=== PATIENT | female | born 1990 | race Caucasian/White ===

== ENCOUNTER 2017-04-17 09:47 | Emergency (ER) | payer OTHER ==
--- NOTE | ~2017-04-17 | CR141 ---
[facility]. [facility] A Service of [facility] & [facility] RADIOLOGY TEXT RESULTS PATIENT: BETY BOURGEOIS LOCATION: SED : [birth year] UNIT #: [id number] AGE: [address]: Mauro Nichole MD SEX: F ORDER DR: [id number] [place] [id number] E MR#: [id number] Acc #: [id number] NAME: BETY BOURGEOIS : 1990 SEX: F STUDY DATE/TIME: UNIT: SED ROOM: STUDY DESCRIPTION: CR Hand Min 3 Views Lt Attending Physician: Mauro Nihcole M.D. Ordering Physician: Mauro Nichole M.D. Primary Care Physician: Primary Care Physician No MEDICAL IMAGING REPORT This report is preliminary unless electronic signature is present. EXAM Left hand 3 views, 04/17/2017 11:21 hours COMPARISON Left wrist, 10/26/2009 HISTORY 27-year-old who suffered dog bite this morning with hand pain. FINDINGS AP, lateral and oblique views demonstrate normal bone density. There is no fracture, dislocation or radiopaque foreign body. No soft tissue gas. IMPRESSION No fracture, dislocation, foreign body or soft tissue gas is seen. Dictated by... Cheri Cowan M.D. THIS IS AN ELECTRONICALLY VERIFIED REPORT Cheri Cowan M.D. at 04/18/2017 9:25 AM May TD: 04/17/2017 15:17 JOB #: [id number] MEDICAL IMAGING REPORT Page 1 of 1
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
[~2017-04-17 09:47] MED LIST: AMOXICILLIN500 M1 PO; AMOXIL500 M1 PO; AUGMENTIN PO; BACTRIM DS TABL1 TAB PO; DELSYM30 MG/5 ML; DICLOFENAC PO; E-MYCIN250 MG PO; FLEXERIL PO; FLEXERIL10 M1 PO; IBUPROFEN PO; KETOPROFEN PO; MEDROL4 MG/DOSE- PO; NO MEDICATIONS; PROVENTIL17 GM INH; TAMIFLU75 M1 PO; TESSALON200 MG PO; VICODIN 5/500 T1 TAB PO; VOLTAREN75 MG PO
== END 2017-04-17 12:18 | disposition home or self-care (01) ==
LOC: SED 09:47
DX: S01.511A Laceration without foreign body of lip, initial encounter (principal); S60.222A Contusion of left hand, initial encounter; Y09 Assault by unspecified means; B19.20 Unspecified viral hepatitis C without hepatic coma; F17.200 Nicotine dependence, unspecified, uncomplicated; Z88.5 Allergy status to narcotic agent; Z91.040 Latex allergy status; Z23 Encounter for immunization; W54.0XXA Bitten by dog, initial encounter; Y92.009 Unspecified place in unspecified non-institutional (private) residence as the place of occurrence of the external cause
CPT/HCPCS: 70450; 73130; 90471; 90715; 99284

== ENCOUNTER 2017-04-25 03:33 | Emergency (ER) | payer OTHER ==
--- NOTE | ~2017-04-25 | CR142 ---
[facility] A Service of [facility] & [facility] RADIOLOGY TEXT RESULTS PATIENT: BETY BOURGEOIS LOCATION: [facility] : [birth year] UNIT #: [id number] AGE: [address]: ARUN RUDOLPH APRN SEX: F ORDER DR: [id number] [facility] [address] [place], [place] [address] [id number] E MR#: [id number] Acc #: [id number] NAME: BETY BOURGEOIS : 1990 SEX: F STUDY DATE/TIME: 04/25/2017 4:12 UNIT: [facility] ROOM: STUDY DESCRIPTION: CR Hand Min 3 Views Rt Attending Physician: Arun Rudolph Aprn Ordering Physician: Zoila Mcdonald M.D. Primary Care Physician: Primary Care Physician No MEDICAL IMAGING REPORT This report is preliminary unless electronic signature is present EXAM Right hand series, 04/25/2017 HISTORY 27-year-old female in the ED complaining of 2-day history of right hand and wrist pain. No reported acute injury. TECHNIQUE Three-view right hand series. FINDINGS The examination is negative. No acute or chronic fracture deformity, arthropathy or other osseous abnormality. IMPRESSION Negative right hand series. Dictated by... Melquiades Dubon M.D. THIS IS AN ELECTRONICALLY VERIFIED REPORT Melquiades Dubon M.D. at 04/25/2017 6:06 AM Simeon TD: 04/25/2017 04:59 JOB #: [id number] MEDICAL IMAGING REPORT Page 1 of 1 COPY
--- NOTE | ~2017-04-25 | CR282 ---
[facility] A Service of [facility] & [facility] RADIOLOGY TEXT RESULTS PATIENT: BTEY BOURGEOIS LOCATION: [facility] : [birth year] UNIT #: [id number] AGE: [address]: ARUN RUDOLPH APRN SEX: F ORDER DR: [id number] [facility] [address] [place], [place] [address] [id number] E MR#: [id number] Acc #: [id number] NAME: BETY BOURGEOIS : 1990 SEX: F STUDY DATE/TIME: 04/25/2017 4:10 UNIT: [facility] ROOM: STUDY DESCRIPTION: CR Wrist Min 3 View Rt Attending Physician: Arun Rudolph Aprn Ordering Physician: Zoila Mcdonald M.D. Primary Care Physician: Primary Care Physician No MEDICAL IMAGING REPORT This report is preliminary unless electronic signature is present EXAM Right wrist series, 04/25/2017 HISTORY 27-year-old female in the ED complaining of 2-day history of right hand and wrist pain. No reported acute injury. TECHNIQUE Three-view right wrist series. FINDINGS The examination is negative. No evidence of fracture, dislocation, arthropathy or other osseous abnormality. IMPRESSION Negative right wrist series. Dictated by... Melquiades Dubon M.D. THIS IS AN ELECTRONICALLY VERIFIED REPORT Melquiades Dubon M.D. at 04/25/2017 6:06 AM Simeon TD: 04/25/2017 04:58 JOB #: [id number] MEDICAL IMAGING REPORT Page 1 of 1 COPY
== END 2017-04-25 05:15 | disposition home or self-care (01) ==
LOC: CED 03:33
DX: S63.501A Unspecified sprain of right wrist, initial encounter (principal); B19.20 Unspecified viral hepatitis C without hepatic coma; F17.210 Nicotine dependence, cigarettes, uncomplicated; X58.XXXA Exposure to other specified factors, initial encounter
CPT/HCPCS: 29125; 73110; 73130; 99283